=== PATIENT | male | born 1950 | race Caucasian/White ===

== ENCOUNTER 2020-02-25 06:51 | Inpatient (IN) ==
[2020-02-25] MEDS ORDERED: *HR* HYDROmorphone 2 MG TABLET PO PRN (07:00)
[2020-02-25] MEDS ORDERED: Pregabalin 75 MG CAPSULE PO ONE (07:00)
[2020-02-25] MEDS ORDERED: Famotidine 20 MG/2 ML VIAL IVP ONE (07:00)
[2020-02-25] MEDS ORDERED: *HR* HYDROmorphone PF 0.5 MG/0.5 ML SYRINGE IVP PRN (07:00)
[2020-02-25] MEDS ORDERED: *HR* Promethazine 25 MG/ML VIAL IVP PRN (07:00)
[2020-02-25] MEDS ORDERED: *HR* Labetalol 20 MG/4 ML SYRINGE IVP PRN (07:00)
[2020-02-25] MEDS ORDERED: *HR* OxyCODONE Immed Rel 5 MG TABLET PO PRN ×2 (07:00→11:09)
[2020-02-25] MEDS ORDERED: Acetaminophen IV 1,000 MG/100 ML INFUS..BTL IVPB ONE (07:00)
[2020-02-25] MEDS ORDERED: Clindamycin 900 MG/50 ML 900 MG/50 ML IV.SOLN IVPB ONE (07:11)
[2020-02-25] MEDS ORDERED: *HR* Succinylcholine 200 MG/10 ML VIAL IVP ONE (07:14)
[2020-02-25] MEDS ORDERED: Lidocaine -MPF 2% 2 ML VIAL ONE (07:14)
[2020-02-25] MEDS ORDERED: *HR* Midazolam HCl 2 MG/2 ML VIAL ONE (07:14)
[2020-02-25] MEDS ORDERED: *HR* Propofol 200 MG/20 ML VIAL IVP ONE (07:14)
[2020-02-25] MEDS ORDERED: *HR* FentaNYL (PF) 100 MCG/2 ML VIAL ONE (07:14)
[2020-02-25] MEDS ORDERED: Lidocaine -MPF 4% 5 ML AMPUL ONE (07:14)
[2020-02-25] MEDS ORDERED: Ringers Solution, Lactated 1,000 ML IVC SCH ×2 (07:15→11:09)
[2020-02-25] MEDS ORDERED: Ethanol\\Acetic Acid\\Na Ace\\Ben 1,000 ML IRRIG.SOLN IR ONE (07:22)
[2020-02-25] MEDS ORDERED: Vancomycin 1,000 MG VIAL ONE (07:46)
[2020-02-25] MEDS ORDERED: Ropivacaine/PF 0.5% 30 ML VIAL ONE (07:57)
[2020-02-25] MEDS ORDERED: Dexamethasone 4 MG/ML VIAL ONE (07:57)
[2020-02-25] MEDS ORDERED: ROPIVACAINE/PF/NS 0.25% 1 EACH SYRINGE INTRAART ONE (07:57)
[2020-02-25] MEDS ORDERED: EPHEDrine 50 MG/ML VIAL ONE (09:14)
[2020-02-25] MEDS ORDERED: *HR* PHENYLEPHRINE 1,000 MCG/10 ML SYRINGE IVP ONE (09:19)
[2020-02-25] MEDS ORDERED: *HR* Phenylephrine 10 MG/ML VIAL ONE (09:36)
[2020-02-25 10:40] LABS: Hematocrit 41.1 % (37.5-50.1)
[2020-02-25 10:42] LABS: Hemoglobin 13.5 g/dL (12.9-16.9)
[2020-02-25] MEDS ORDERED: *HR* OxyCODONE/APAP 5/325 TABLET PO PRN (11:09)
[2020-02-25] MEDS ORDERED: Fluticasone Propionate Nasal 50 MCG/SPRAY BOTTLE NS PRN (11:09)
[2020-02-25] MEDS ORDERED: Cyanocobalamin (B-12) 1,000 MCG TABLET PO SCH (11:09)
[2020-02-25] MEDS ORDERED: MOM Conc 10 ML UD.LIQ PO PRN (11:09)
[2020-02-25] MEDS ORDERED: Acetaminophen/Aspirin/Caffeine TABLET PO PRN (11:09)
[2020-02-25] MEDS ORDERED: amLODIPine 5 MG TABLET PO SCH (11:09)
[2020-02-25] MEDS ORDERED: Ondansetron 4 MG/2 ML VIAL IVP PRN (11:09)
[2020-02-25] MEDS ORDERED: FluocinoNIDE 0.05% CRM 15 GM TUBE TP PRN (11:09)
[2020-02-25] MEDS ORDERED: Sennosides 8.6 MG TABLET PO PRN (11:09)
[2020-02-25] MEDS ORDERED: Dextrose Gel 15 GM/37.5 ML TUBE PO PRN ×2 (11:09)
[2020-02-25] MEDS ORDERED: Aspirin Enteric Coated 81 MG Tablet PO SCH (11:09)
[2020-02-25] MEDS ORDERED: Loratadine 10 MG TABLET PO SCH (11:09)
[2020-02-25] MEDS ORDERED: *HR* Dextrose 50 % in Water (Vial) 50 ML VIAL IVP PRN (11:09)
[2020-02-25] MEDS ORDERED: D5% in Water 1,000 ML IVC PRN (11:09)
[2020-02-25] MEDS ORDERED: Naloxone 0.4 MG/ML INJ IVP PRN (11:09)
[2020-02-25] MEDS ORDERED: Insulin LISPRO 300 UNITS/3 ML VIAL SQ SCH ×2 (11:30→21:00)
[2020-02-25] MEDS: Sucralfate 1 GM TABLET PO SCH ×2 (12:24→15:43)
[2020-02-25 15:14] VITALS: BP 111/68
[2020-02-25] MEDS ORDERED: *HR* Enoxaparin 30 MG/0.3 ML SYRINGE SQ SCH ×3 (15:30→18:00)
[2020-02-25] MEDS ORDERED: Clindamycin 900 MG/50 ML 900 MG/50 ML IV.SOLN IVPB SCH ×2 (16:00)
== END 2020-02-25 18:00 | disposition home or self-care (01) | DRG 483 ==
LOC: SAMDAY 06:51 → 3NENU 11:08
PROVIDERS: ADMIT Orthopaedic Surgery; ATTEND Orthopaedic Surgery